=== PATIENT | female | born 1965 | race Caucasian/White ===

== ENCOUNTER 2019-01-01 20:25 | Inpatient (IN) | payer MEDICAID, OTHER ==
[2019-01-01 23:13] LABS: ADD MAN DIFF? NO
[2019-01-01 23:15] LABS: WHITE BLOOD COUNT 6.1 10^3/ul (4.8-10.8)
[2019-01-01 23:15] LABS: BASOPHILS % 0.7 % (0.0-2.0); EOSINOPHILS # 0.1 10^3/ul (0.0-0.5); EOSINOPHILS % 1.8 % (0.0-7.0); HEMATOCRIT 30.8 % (37.0-47.0); HEMOGLOBIN 10.3 g/dl (12.0-16.0); LYMPHOCYTES # 1.4 10^3/ul (0.8-2.9); LYMPHOCYTES % 23.5 % (15.0-51.0); MEAN CORPUSCULAR HEMOGLOBIN 29.6 pg (29.0-33.0); MEAN CORPUSCULAR HGB CONC 33.4 g/dl (32.0-37.0); MEAN CORPUSCULAR VOLUME 88.5 fl (82.0-101.0); MEAN PLATELET VOLUME 10.1 fl (7.4-10.4); MONOCYTE # 0.4 10^3/ul (0.3-0.9); MONOCYTES % 5.9 % (0.0-11.0); NEUTROPHIL # 4.1 10^3/ul (1.6-7.5); NEUTROPHILS % 67.3 % (39.0-77.0); PLATELET COUNT 326 10^3/UL (140-415); RED BLOOD COUNT 3.48 10^6/ul (4.20-5.40); RED CELL DISTRIBUTION WIDTH 13.1 % (11.5-14.5)
[2019-01-01 23:33] LABS: ALANINE AMINOTRANSFERASE 14 IU/L (13-69); ALBUMIN 2.6 g/dl (3.3-4.9); ALBUMIN/GLOBULIN RATIO 0.76; ALKALINE PHOSPHATASE 160 IU/L (42-121); ASPARTATE AMINO TRANSFERASE 19 IU/L (15-46); BILIRUBIN,INDIRECT 0.1 mg/dl (0-1.1); BILIRUBIN,TOTAL 0.1 mg/dl (0.2-1.3); BLOOD UREA NITROGEN 26 mg/dl (7-20); CALCIUM 8.2 mg/dl (8.4-10.2); CARBON DIOXIDE 23 mmol/L (21-31); CREATININE 1.61 mg/dl (0.44-1.00); Estimated GFR 33 mL/min (>60); POTASSIUM 4.3 mmol/L (3.5-5.1); SODIUM 127 mmol/L (135-144)
[2019-01-01 23:44] LABS: ANION GAP 4 (5-13); B-TYPE NATRIURETIC PEPTIDE 1360 PG/ML (0-125); CHLORIDE 100 mmol/L (97-110); TROPONIN-I < 0.012 ng/ml (0.000-0.120)
[2019-01-01 23:45] LABS: GLUCOSE 649 mg/dl (70-220)
[2019-01-02] MEDS: FUROSEMIDE 40 MG INJ IV ×3 (00:40→09:37)
[2019-01-02] MEDS: INSULIN REGULAR, HUMAN 100 UNIT/1 ML 3ML VIAL SC ×2 (00:42→05:19)
[2019-01-02] MEDS: ACCU-CHEK XX (02:00)
[2019-01-02] MEDS ORDERED: DOCUSATE SODIUM 100 MG CAP PO (02:00)
[2019-01-02] MEDS ORDERED: morphine 2 MG INJ IV (02:00)
[2019-01-02] MEDS ORDERED: GLUCOSE GEL 15 GRAM TUBE BUCCAL (02:00)
[2019-01-02] MEDS ORDERED: DEXTROSE 50% 50 ML SYRINGE IV ×2 (02:00)
[2019-01-02] MEDS ORDERED: GLUCAGON 1 MG INJ IM (02:00)
[2019-01-02] MEDS ORDERED: BISACODYL (EC) 5 MG TAB PO (02:00)
[2019-01-02] MEDS ORDERED: NACL 0.9% 3 ML SYG IV (02:00)
[2019-01-02] MEDS ORDERED: GLUCOSE GEL 15 GRAM TUBE PO ×2 (02:00)
[2019-01-02] MEDS: LABETALOL HCL 20MG INJ IV ×2 (02:29→05:10)
[2019-01-02] MEDS ORDERED: INSULIN GLARGINE [LANTus] (100 UNITS/ML) SYG SC ×2 (03:00→08:00)
[2019-01-02 04:53] LABS: URINE BLOOD (Dip) POC 2+ (NEGATIVE); URINE KETONES (Dip) POC Negative (NEGATIVE); URINE LEUKOCYTE EST (Dip) POC Negative (NEGATIVE); URINE NITRITE (Dip) POC Negative (NEGATIVE); URINE TOTAL PROTEIN POC 3+ (NEGATIVE)
[2019-01-02] MEDS ORDERED: INSULIN ASPART [NOVOLOG] 3 ML PEN SC (05:00)
[2019-01-02 05:28] LABS: WHITE BLOOD COUNT 7.4 10^3/ul (4.8-10.8)
[2019-01-02 05:28] LABS: ADD MAN DIFF? NO; BASOPHIL # 0.1 10^3/ul (0.0-0.1); BASOPHILS % 0.9 % (0.0-2.0); EOSINOPHILS # 0.1 10^3/ul (0.0-0.5); EOSINOPHILS % 1.3 % (0.0-7.0); HEMATOCRIT 30.5 % (37.0-47.0); HEMOGLOBIN 10.4 g/dl (12.0-16.0); LYMPHOCYTES # 1.8 10^3/ul (0.8-2.9); LYMPHOCYTES % 24.4 % (15.0-51.0); MEAN CORPUSCULAR HEMOGLOBIN 29.8 pg (29.0-33.0); MEAN CORPUSCULAR HGB CONC 34.1 g/dl (32.0-37.0); MEAN CORPUSCULAR VOLUME 87.4 fl (82.0-101.0); MEAN PLATELET VOLUME 9.8 fl (7.4-10.4); MONOCYTE # 0.4 10^3/ul (0.3-0.9); NEUTROPHILS % 67.6 % (39.0-77.0); PLATELET COUNT 343 10^3/UL (140-415); RED BLOOD COUNT 3.49 10^6/ul (4.20-5.40); RED CELL DISTRIBUTION WIDTH 12.9 % (11.5-14.5)
[2019-01-02 05:59] LABS: ALANINE AMINOTRANSFERASE 7 IU/L (13-69); ALBUMIN 2.7 g/dl (3.3-4.9); ALBUMIN/GLOBULIN RATIO 0.84; ALKALINE PHOSPHATASE 139 IU/L (42-121); ANION GAP 6 (5-13); ASPARTATE AMINO TRANSFERASE 18 IU/L (15-46); BILIRUBIN,INDIRECT 0.2 mg/dl (0-1.1); BILIRUBIN,TOTAL 0.2 mg/dl (0.2-1.3); BLOOD UREA NITROGEN 27 mg/dl (7-20); CALCIUM 8.4 mg/dl (8.4-10.2); CARBON DIOXIDE 25 mmol/L (21-31); CHLORIDE 100 mmol/L (97-110); CREATININE 1.64 mg/dl (0.44-1.00); Estimated GFR 33 mL/min (>60); GLUCOSE 378 mg/dl (70-220); HDL CHOLESTEROL 65 mg/dl (37-92); MAGNESIUM 2.4 mg/dl (1.7-2.5); POTASSIUM 3.8 mmol/L (3.5-5.1); SODIUM 131 mmol/L (135-144); TOTAL PROTEIN 5.9 g/dl (6.1-8.1); TRIGLYCERIDES 278 mg/dl (0-149)
[2019-01-02 06:04] LABS: ADD UMIC YES; UR ASCORBIC ACID NEGATIVE (NEGATIVE); UR BILIRUBIN (Dip) NEGATIVE (NEGATIVE); UR BLOOD (Dip) 1+ mg/dL (NEGATIVE); UR CLARITY CLEAR (CLEAR); UR COLOR STRAW (YELLOW); UR GLUCOSE (Dip) 3+ mg/dL (NEGATIVE); UR KETONES (Dip) NEGATIVE (NEGATIVE); UR LEUKOCYTE ESTERASE (Dip) NEGATIVE Leu/ul (NEGATIVE); UR NITRITE (Dip) NEGATIVE (NEGATIVE); UR RBC 1 /HPF (0-5); UR SPECIFIC GRAVITY (Dip) 1.024 (1.003-1.030); UR TOTAL PROTEIN (Dip) 3+ mg/dl (NEGATIVE); UR UROBILINOGEN (Dip) NEGATIVE (NEGATIVE); UR WBC 1 /HPF (0-5)
[2019-01-02 06:11] LABS: CHOL/HDL RATIO 5.8 RATIO; CHOLESTEROL 380 mg/dl (100-200); LDL CHOLESTEROL,CALCULATED 259 mg/dl
[2019-01-02] MEDS ORDERED: ONDANSETRON (ODT) 4 MG TAB ODT (06:15)
[2019-01-02 06:16] LABS: SODIUM,URINE RANDOM 31 mmol/L (30-90)
[2019-01-02] MEDS ORDERED: hydrALAzine 20 MG INJ IV (07:30)
[2019-01-02] MEDS: METOLAZONE 2.5 MG TAB PO ×2 (07:30→08:30)
[2019-01-02] MEDS: HEPARIN 5,000 UNIT/1 ML VIAL SC ×3 (07:55→22:08)
[2019-01-02] MEDS: INSULIN GLARGINE [LANTus] (100 UNITS/ML) SYG SC (08:32)
[2019-01-02] MEDS: INSULIN ASPART [NOVOLOG] 3 ML PEN SC ×4 (09:40→21:06)
[2019-01-02] MEDS: AMLODIPINE 10 MG TAB PO (09:54)
[2019-01-02 15:18] LABS: TROPONIN-I < 0.012 ng/ml (0.000-0.120)
[2019-01-02] MEDS: SOD CHLORIDE 0.45% 1,000 ML IV (15:18)
[2019-01-02] MEDS: TAMSULOSIN (SR) 0.4 MG CAP PO (16:03)
[2019-01-02 19:56] LABS: TROPONIN-I < 0.012 ng/ml (0.000-0.120)
[2019-01-03] MEDS: ACCU-CHEK XX (02:04)
[2019-01-03] MEDS: SOD CHLORIDE 0.45% 1,000 ML IV (04:30)
[2019-01-03 05:04] LABS: ADD MAN DIFF? NO
[2019-01-03] MEDS: HEPARIN 5,000 UNIT/1 ML VIAL SC ×3 (05:06→20:45)
[2019-01-03 05:11] LABS: BASOPHIL # 0.1 10^3/ul (0.0-0.1); EOSINOPHILS # 0.1 10^3/ul (0.0-0.5); EOSINOPHILS % 1.3 % (0.0-7.0); HEMATOCRIT 30.8 % (37.0-47.0); HEMOGLOBIN 10.2 g/dl (12.0-16.0); LYMPHOCYTES # 2.2 10^3/ul (0.8-2.9); LYMPHOCYTES % 36.2 % (15.0-51.0); MEAN CORPUSCULAR HEMOGLOBIN 29.5 pg (29.0-33.0); MEAN CORPUSCULAR HGB CONC 33.1 g/dl (32.0-37.0); MEAN PLATELET VOLUME 11.2 fl (7.4-10.4); MONOCYTE # 0.3 10^3/ul (0.3-0.9); MONOCYTES % 5.1 % (0.0-11.0); NEUTROPHIL # 3.4 10^3/ul (1.6-7.5); NEUTROPHILS % 56.1 % (39.0-77.0); PLATELET COUNT 307 10^3/UL (140-415); RED BLOOD COUNT 3.46 10^6/ul (4.20-5.40); RED CELL DISTRIBUTION WIDTH 13.3 % (11.5-14.5)
[2019-01-03 05:11] LABS: WHITE BLOOD COUNT 6.1 10^3/ul (4.8-10.8)
[2019-01-03 05:27] LABS: ALANINE AMINOTRANSFERASE 8 IU/L (13-69); ALBUMIN 2.6 g/dl (3.3-4.9); ALBUMIN/GLOBULIN RATIO 0.76; ALKALINE PHOSPHATASE 128 IU/L (42-121); ANION GAP 5 (5-13); ASPARTATE AMINO TRANSFERASE 26 IU/L (15-46); BILIRUBIN,INDIRECT 0.2 mg/dl (0-1.1); BILIRUBIN,TOTAL 0.2 mg/dl (0.2-1.3); BLOOD UREA NITROGEN 29 mg/dl (7-20); CALCIUM 8.7 mg/dl (8.4-10.2); CARBON DIOXIDE 24 mmol/L (21-31); CHLORIDE 105 mmol/L (97-110); CREATININE 2.07 mg/dl (0.44-1.00); Estimated GFR 25 mL/min (>60); GLUCOSE 147 mg/dl (70-220); MAGNESIUM 2.4 mg/dl (1.7-2.5); POTASSIUM 4.4 mmol/L (3.5-5.1); SODIUM 134 mmol/L (135-144)
[2019-01-03] MEDS: AMLODIPINE 10 MG TAB PO (08:50)
[2019-01-03] MEDS: TAMSULOSIN (SR) 0.4 MG CAP PO (08:51)
[2019-01-03] MEDS: INSULIN GLARGINE [LANTus] (100 UNITS/ML) SYG SC ×2 (08:54→22:22)
[2019-01-03] MEDS: INSULIN ASPART [NOVOLOG] 3 ML PEN SC ×4 (08:55→20:44)
[2019-01-03] MEDS: ACETAMINOPHEN 325 MG TAB PO (09:28)
[2019-01-03] MEDS ORDERED: FUROSEMIDE 20 MG INJ IV (11:00)
[2019-01-03 13:43] LABS: ADD UMIC YES; UR ASCORBIC ACID NEGATIVE (NEGATIVE); UR BILIRUBIN (Dip) NEGATIVE (NEGATIVE); UR BLOOD (Dip) 1+ mg/dL (NEGATIVE); UR CLARITY CLEAR (CLEAR); UR COLOR STRAW (YELLOW); UR GLUCOSE (Dip) 3+ mg/dL (NEGATIVE); UR KETONES (Dip) NEGATIVE (NEGATIVE); UR LEUKOCYTE ESTERASE (Dip) NEGATIVE Leu/ul (NEGATIVE); UR NITRITE (Dip) NEGATIVE (NEGATIVE); UR RBC 1 /HPF (0-5); UR SPECIFIC GRAVITY (Dip) 1.008 (1.003-1.030); UR TOTAL PROTEIN (Dip) 3+ mg/dl (NEGATIVE); UR UROBILINOGEN (Dip) NEGATIVE (NEGATIVE); UR WBC 2 /HPF (0-5)
[2019-01-03 13:50] LABS: SODIUM,URINE RANDOM 25 mmol/L (30-90)
[2019-01-03 13:55] LABS: CREATININE,URINE RANDOM 42.33 mg/dl (20-320)
[2019-01-03] MEDS: ALBUMIN HUMAN 25% 100 ML IV ×2 (14:41→20:42)
[2019-01-03 15:56] LABS: CREATININE, RANDOM URINE 29 mg/dL (20-275); MICROALBUMIN 358.2 mg/dL; MICROALBUMIN/CREATININE RATIO 12352 (<30)
[2019-01-04] MEDS: ACCU-CHEK XX (02:32)
[2019-01-04] MEDS: ALBUMIN HUMAN 25% 100 ML IV (04:28)
[2019-01-04 05:24] LABS: ADD MAN DIFF? NO
[2019-01-04] MEDS: HEPARIN 5,000 UNIT/1 ML VIAL SC ×2 (05:29→13:32)
[2019-01-04 05:43] LABS: BASOPHIL # 0.1 10^3/ul (0.0-0.1); EOSINOPHILS # 0.1 10^3/ul (0.0-0.5); EOSINOPHILS % 1.6 % (0.0-7.0); HEMATOCRIT 27.7 % (37.0-47.0); HEMOGLOBIN 9.3 g/dl (12.0-16.0); LYMPHOCYTES # 2.5 10^3/ul (0.8-2.9); LYMPHOCYTES % 40.7 % (15.0-51.0); MEAN CORPUSCULAR HEMOGLOBIN 29.6 pg (29.0-33.0); MEAN CORPUSCULAR HGB CONC 33.6 g/dl (32.0-37.0); MEAN CORPUSCULAR VOLUME 88.2 fl (82.0-101.0); MEAN PLATELET VOLUME 10.7 fl (7.4-10.4); MONOCYTE # 0.4 10^3/ul (0.3-0.9); MONOCYTES % 6.4 % (0.0-11.0); NEUTROPHILS % 49.8 % (39.0-77.0); PLATELET COUNT 334 10^3/UL (140-415); RED BLOOD COUNT 3.14 10^6/ul (4.20-5.40); RED CELL DISTRIBUTION WIDTH 13.3 % (11.5-14.5)
[2019-01-04 05:43] LABS: WHITE BLOOD COUNT 6.1 10^3/ul (4.8-10.8)
[2019-01-04 06:39] LABS: ALANINE AMINOTRANSFERASE 16 IU/L (13-69); ALBUMIN 3.1 g/dl (3.3-4.9); ALBUMIN/GLOBULIN RATIO 1.03; ALKALINE PHOSPHATASE 97 IU/L (42-121); ANION GAP 7 (5-13); ASPARTATE AMINO TRANSFERASE 24 IU/L (15-46); BILIRUBIN,INDIRECT 0.1 mg/dl (0-1.1); BILIRUBIN,TOTAL 0.1 mg/dl (0.2-1.3); BLOOD UREA NITROGEN 36 mg/dl (7-20); CALCIUM 8.8 mg/dl (8.4-10.2); CARBON DIOXIDE 26 mmol/L (21-31); CHLORIDE 101 mmol/L (97-110); CREATININE 1.95 mg/dl (0.44-1.00); Estimated GFR 27 mL/min (>60); GLUCOSE 129 mg/dl (70-220); SODIUM 134 mmol/L (135-144); TOTAL PROTEIN 6.1 g/dl (6.1-8.1)
[2019-01-04] MEDS: INSULIN ASPART [NOVOLOG] 3 ML PEN SC ×6 (07:50→18:15)
[2019-01-04] MEDS ORDERED: INSULIN GLARGINE [LANTus] (100 UNITS/ML) SYG SC (08:00)
[2019-01-04] MEDS: TAMSULOSIN (SR) 0.4 MG CAP PO (09:06)
[2019-01-04] MEDS: AMLODIPINE 10 MG TAB PO (09:07)
[2019-01-04] MEDS: INSULIN GLARGINE [LANTus] (100 UNITS/ML) SYG SC (09:09)
[2019-01-04 10:18] LABS: HAAIG REFLEX REFLEX FILED
[2019-01-04 11:34] LABS: COMPLEMENT C3 84 mg/dl (88-165); COMPLEMENT C4 29 mg/dl (14-44)
[2019-01-04 11:52] LABS: HEPATITIS B SURFACE ANTIGEN NEGATIVE (NEGATIVE)
[2019-01-04 12:09] LABS: HEPATITIS B CORE ANTIBODY NEGATIVE (NEGATIVE); HEPATITIS C VIRAL ANTIBODY NEGATIVE (NEGATIVE)
[2019-01-04 15:14] LABS: RHEUMATOID FACTOR NEGATIVE (NEGATIVE)
[2019-01-04 16:52] LABS: CREATININE, RANDOM URINE 44 mg/dL (20-275); MICROALBUMIN 260.1 mg/dL; MICROALBUMIN/CREATININE RATIO 5911 (<30)
[2019-01-05 06:37] LABS: PROTEIN, TOTAL 5.6 g/dL (6.1-8.1)
[2019-01-05 13:41] LABS: ANCA SCREEN NEGATIVE (NEGATIVE)
[2019-01-05 16:02] LABS: ANA SCREEN NEGATIVE (NEGATIVE)
[2019-01-05 16:51] LABS: ALBUMIN 3.3 g/dL (3.8-4.8); ALPHA-1-GLOBULINS 0.2 g/dL (0.2-0.3); ALPHA-2-GLOBULINS 0.8 g/dL (0.5-0.9); ANTI-DNA (DOUBLE STRANDED) <95 U/mL (< 301); BETA 2 GLOBULINS 0.4 g/dL (0.2-0.5); BETA GLOBULINS 0.3 g/dL (0.4-0.6); GAMMA GLOBULINS 0.6 g/dL (0.8-1.7)
[2019-01-05 18:22] LABS: MYELOPEROXIDASE ANTIBODY <1.0 AI; PROTEINASE-3 ANTIBODY <1.0 AI
[2019-01-06 16:52] LABS: CREATININE, RANDOM URINE 34 mg/dL (20-275); PROTEIN/CREATININE RATIO 19382 mg/g creat (21-161)
== END 2019-01-04 20:15 | disposition home or self-care (01) | DRG 699 ==
LOC: E/R 20:25 → MS1 01-02 01:23
PROVIDERS: Family Medicine
DX: E11.21 Type 2 diabetes mellitus with diabetic nephropathy (principal); E87.1 Hypo-osmolality and hyponatremia; N20.1 Calculus of ureter; E11.65 Type 2 diabetes mellitus with hyperglycemia; I16.0 Hypertensive urgency; N17.9 Acute kidney failure, unspecified; N18.9 Chronic kidney disease, unspecified; E78.5 Hyperlipidemia, unspecified; E88.09 Other disorders of plasma-protein metabolism, not elsewhere classified; E11.22 Type 2 diabetes mellitus with diabetic chronic kidney disease; D63.1 Anemia in chronic kidney disease; E83.9 Disorder of mineral metabolism, unspecified; K57.30 Diverticulosis of large intestine without perforation or abscess without bleeding; K42.9 Umbilical hernia without obstruction or gangrene; I12.9 Hypertensive chronic kidney disease with stage 1 through stage 4 chronic kidney disease, or unspecified chronic kidney disease; R07.89 Other chest pain; E11.40 Type 2 diabetes mellitus with diabetic neuropathy, unspecified
CPT/HCPCS: 36415; 71045; 74018; 74176; 76775; 80053; 80061; 81001; 81003; 82043; 82306; 82570; 82595; 82962; 83036; 83735; 83880; 84155; 84156; 84165; 84166; 84300; 84443; 84484; 85025; 86021; 86038; 86160; 86226; 86320; 86325; 86430; 86704; 86709; 86803; 87340; 93005; 93306; 93970; 96372; 96374; 99285-25